=== PATIENT | female | born 1950 | race Caucasian/White ===

== ENCOUNTER 2016-08-01 22:29 | Observation (INO) | payer BC, MEDICARE ==
[~2016-08-01] VITALS: Ht 170.2 cm; Wt 78.0 kg
[2016-08-01 22:31] VITALS: BP 196/90; PULSE 91; RESP 16; TEMP 98.4; O2SAT 98
[2016-08-01 23:00] VITALS: BP 149/74; PULSE 85; RESP 16; O2SAT 98
[2016-08-01 23:20] VITALS: RESP 18; O2SAT 98
[2016-08-02] MEDS ORDERED: MORPHINE SULFATE 4 MG/ML INJ IV PUSH ONE (00:30)
[2016-08-02] MEDS ORDERED: ONDANSETRON HCL 4 MG/2 ML VIAL IV PUSH ONE (00:30)
--- NOTE | 2016-08-02 00:36 | RADRPT ---
EXAM DATE/TIME: 08/02/2016 00:21 [facility] COMPARISON: No previous studies available for comparison. INDICATIONS : Chest pain. MEDICAL HISTORY : None. SURGICAL HISTORY : None. ENCOUNTER: Initial ACUITY: 1 day PAIN SCORE: 0/10 LOCATION: Bilateral chest FINDINGS: A single view of the chest demonstrates the lungs to be symmetrically aerated without evidence of mas s, infiltrate or effusion. The cardiomediastinal contours are unremarkable. Osseous structures are intact. CONCLUSION: No acute disease. Keny Saavedra Jr., MD on August 02, 2016 at 0:34 Board Certified Radiologist. This report was verified electronically.
[2016-08-02 00:38] LABS: BASOPHIL % 0.4 % (0.0-2.0); EOSINOPHIL # 0.2 TH/MM3 (0-0.4); EOSINOPHIL % 2.7 % (0.0-4.0); HEMATOCRIT 35.6 % (35.0-46.0); HEMO FLAGS DIFF FINAL; LYMPH % 23.9 % (9.0-44.0); LYMPHOCYTE # 2.2 TH/MM3 (1.0-4.8); MEAN CELL VOLUME 88.4 FL (80.0-100.0); MEAN CORPUSCULAR HEMOGLOBIN 30.6 PG (27.0-34.0); MEAN CORPUSCULAR HGB CONC 34.7 % (32.0-36.0); MONO % 7.6 % (0.0-8.0); NEUT % 65.4 % (16.0-70.0); PLATELET COUNT 222 TH/MM3 (150-450); RED BLOOD COUNT 4.03 MIL/MM3 (4.00-5.30); RED CELL DISTRIBUTION WIDTH 12.8 % (11.6-17.2); WHITE BLOOD COUNT 9.2 TH/MM3 (4.0-11.0)
[2016-08-02 00:55] LABS: APTT (PATIENT) 29.4 SEC (24.3-30.1); INTERNATIONAL NORMALIZED RATIO 0.9 RATIO; PROTHROMBIN TIME - PATIENT 10.4 SEC (9.8-11.6)
--- NOTE | 2016-08-02 00:56 | PD ---
HPI Chief Complaint: Chest Pain Time Seen by Provider: 23:26 Travel History International Travel<30 days: No Contact w/Intl Traveler<30days: No Traveled to known affect area: No History of Present Illness HPI 66-year-old female complains of chest pain. Patient states that she has intermittent chest pain for the past 2 months. Patient states the pain is a combination of sharp pain and aching pain started on the right-sided chest with radiation to the mid substernal area and to the back. Patient states that she has intermittent coughing congestion with productive sputum also. Patient states that she has intermittent nausea but no vomiting or diarrhea. Patient states the pain is worse with movement and deep inspiration and exertion. Patient denies any diaphoresis. Patient denies any history of CAD. Patient was seen by personal physician for chest pain and scheduled for stress test next week. Patient came to [facility] for the past few days. Patient has history hypertension, hyperlipidemia. Patient is a nonsmoker. Patient has family history of heart disease. Patient denies history of diabetes. On a scale of 1- 10 the pain is a 6.. PFSH Social History Tobacco Use: No Allergies-Medications (Allergen,Severity, Reaction): Coded Allergies: Erythromycin (Verified Allergy, Intermediate, 08/01/16) Macrodantin (Verified Allergy, Intermediate, 08/01/16) Reported Meds & Prescriptions Reported Meds & Active Scripts Active Reported Hydrochlorothiazide 25 Mg Tab 25 Mg PO DAILY Testopel Implant (Testosterone) 75 mg Impl Unknown Dose IMPLANT Q90D [Vitamin A&D&K] 1 Cap PO HS Atorvastatin (Atorvastatin Calcium) 10 Mg Tab 10 Mg PO HS Metformin (Metformin HCl) 500 Mg Tab 500 Mg PO DAILY AFTER DINNER With a meal Toprol XL (Metoprolol Succinate) 25 Mg Tab 25 Mg PO DAILY Diltiazem CD 24 HR 180 Mg Caper 180 Mg PO DAILY Omeprazole 40 Mg Cap 40 Mg PO DAILY Celebrex (Celecoxib) 200 Mg Cap 200 Mg PO DAILY Gabapentin 300 Mg Cap 300 Mg PO BID Thyroid 65 Mg Tab 65 Mg PO DAILY Elmiron (Pentosan Polysulfate Sodium) 100 Mg Cap 100 Mg PO TID All Day Allergy (Cetirizine HCl) 10 Mg Tab 10 Mg PO DAILY Zofran (Ondansetron HCl) 4 Mg Tab 4 Mg PO Q6HR PRN Review of Systems General / Constitutional: No: Fever Eyes: No: Visual changes HENT: No: Headaches Cardiovascular: Positive: Chest Pain or Discomfort Respiratory: Positive: Cough, No: Shortness of Breath Gastrointestinal: Positive: Nausea, No: Abdominal Pain Genitourinary: No: Dysuria Musculoskeletal: No: Pain Skin: No Rash Neurologic: No: Weakness Psychiatric: No: Depression Endocrine: No: Polydipsia Hematologic/Lymphatic: No: Easy Bruising Physical Exam Narrative GENERAL: Well-nourished, well-developed patient. SKIN: Focused skin assessment warm/dry. HEAD: Normocephalic. EYES: No scleral icterus. No injection or drainage. NECK: Supple, trachea midline. No JVD or lymphadenopathy. CARDIOVASCULAR: Regular rate and rhythm without murmurs, gallops, or rubs. RESPIRATORY: Breath sounds equal bilaterally. No accessory muscle use. GASTROINTESTINAL: Abdomen soft, non-tender, nondistended. MUSCULOSKELETAL: No cyanosis, or edema. BACK: Nontender without obvious deformity. No CVA tenderness. Neurologic exam normal. Data Data Last Documented VS Vital Signs Date Time Temp Pulse Resp B/P Pulse Ox O2 Delivery O2 Flow Rate FiO2 08/01/16 23:20 18 98 Room Air 08/01/16 23:20 72 08/01/16 23:00 149/74 08/01/16 22:31 98.4 Orders Complete Blood Count With Diff (08/01/16 23:53) Comprehensive Metabolic Panel (08/01/16 23:53) Creatine Kinase (Cpk) (08/01/16 23:53) Troponin I (08/01/16 23:53) B-Type Natriuretic Peptide (08/01/16 23:53) Prothrombin Time / Inr (Pt) (08/01/16 23:53) Act Partial Throm Time (Ptt) (08/01/16 23:53) Urinalysis - C+S If Indicated (08/01/16 23:53) D-Dimer (08/01/16 23:53) Chest, Single Ap (08/01/16 23:53) Iv Access Insert/Monitor (08/01/16 23:53) Ecg Monitoring (08/01/16 23:53) Oximetry (08/01/16 23:53) Ct Pulmonary Angiogram (08/01/16 23:53) Morphine Inj (Morphine Inj) (08/02/16 00:30) Ondansetron Inj (Zofran Inj) (08/02/16 00:30) Iohexol 350 Inj (Omnipaque 350 Inj) (08/02/16 01:44) Activity Bed Rest With Brp (08/02/16 02:21) Vital Signs (Adult) Q4H (08/02/16 02:21) Cardiac Rhythm .As Directed (08/02/16 02:) Notify Dr: Other .PRN (08/02/16 02:21) Notify DrPanchito Parameters (08/02/16 02:21) Resp Oxygen Nasal Cannula (08/02/16 ) Ckmb (Isoenzyme) Profile (08/02/16 02:30) Ckmb (Isoenzyme) Profile (08/02/16 05:30) Troponin I (08/02/16 02:30) Troponin I (08/02/16 05:30) Electrocardiogram (08/02/16 02:30) Electrocardiogram (08/02/16 05:30) ^ Obtain (08/02/16 02:21) Sodium Chloride 0.9% Flush (Ns Flush) (08/02/16 02:30) Sodium Chloride 0.9% Flush (Ns Flush) (08/02/16 09:00) Acetaminophen (Tylenol) (08/02/16 02:30) Ondansetron Inj (Zofran Inj) (08/02/16 02:30) Sandwich Peddler / Telemetry MARIAN.Q8H (08/02/16 02:21) Admit Order (Ed Use Only) (08/02/16 02:23) Potassium Chloride (Kcl) (08/02/16 02:30) Labs Laboratory Tests Test 08/01/16 23:20 White Blood Count 9.2 TH/MM3 Red Blood Count 4.03 MIL/MM3 Hemoglobin 12.3 GM/DL Hematocrit 35.6 % Mean Corpuscular Volume 88.4 FL Mean Corpuscular Hemoglobin 30.6 PG Mean Corpuscular Hemoglobin 34.7 % Concent Red Cell Distribution Width 12.8 % Platelet Count 222 TH/MM3 Mean Platelet Volume 9.0 FL Neutrophils (%) (Auto) 65.4 % Lymphocytes (%) (Auto) 23.9 % Monocytes (%) (Auto) 7.6 % Eosinophils (%) (Auto) 2.7 % Basophils (%) (Auto) 0.4 % Neutrophils # (Auto) 6.0 TH/MM3 Lymphocytes # (Auto) 2.2 TH/MM3 Monocytes # (Auto) 0.7 TH/MM3 Eosinophils # (Auto) 0.2 TH/MM3 Basophils # (Auto) 0.0 TH/MM3 CBC Comment DIFF FINAL Differential Comment Prothrombin Time 10.4 SEC Prothromb Time International 0.9 RATIO Ratio Activated Partial 29.4 SEC Thromboplast Time D-Dimer Quantitative (PE/DVT) 0.39 MG/L FEU Sodium Level 141 MEQ/L Potassium Level 3.2 MEQ/L Chloride Level 103 MEQ/L Carbon Dioxide Level 25.2 MEQ/L Anion Gap 13 MEQ/L Blood Urea Nitrogen 22 MG/DL Creatinine 1.32 MG/DL Estimat Glomerular Filtration 40 ML/MIN Rate Random Glucose 187 MG/DL Calcium Level 8.5 MG/DL Total Bilirubin 0.8 MG/DL Aspartate Amino Transf 27 U/L (AST/SGOT) Alanine Aminotransferase 24 U/L (ALT/SGPT) Alkaline Phosphatase 131 U/L Total Creatine Kinase 84 U/L Troponin I LESS THAN 0.02 NG/ML B-Type Natriuretic Peptide 38 PG/ML Total Protein 7.0 GM/DL Albumin 3.3 GM/DL MDM Medical Decision Making Medical Screen Exam Complete: Yes Emergency Medical Condition: Yes Interpretation(s) 12:55 AM. EKG shows sinus rhythm nonspecific ST-T wave change. 2:16 AM. Last Impressions Chest X-Ray 08/01/166 Signed Impressions: Service Date/Time: Tuesday, August 02, 2016 00:21 - CONCLUSION: No acute disease. Keny Saavedra Jr., MD CT Angiography 08/01/16 [id number] Signed Impressions: Service Date/Time: Tuesday, August 02, 2016 01:26 - CONCLUSION: 1. No pulmonary emboli. 2. No acute intrathoracic process. 3. Prior granulomatous disease. Keny Saavedra Jr., MD 2:18 AM. CBC within normal limit. Potassium 3.2. BUN 22. Creatinine 1.32. Cardiac enzymes are normal. Differential Diagnosis Differential diagnosis including musculoskeletal, bronchitis, pneumonia, angina , ID, PE, pneumothorax. Narrative Course 66-year-old female with chest pain. KCl 20 mEq by mouth given. Patient will be admitted to the chest pain center. Diagnosis Primary Impression: Chest pain Qualified Code: R07.9 - Chest pain, unspecified type Admitting Information Admitting Physician Requests: Observation Jacob Rodarte MD August 02, 2016 00:56
[2016-08-02 00:59] LABS: ANION GAP 13 MEQ/L (5-15); AST (GOT) 27 U/L (15-37); BICARBONATE 25.2 MEQ/L (21.0-32.0); BLOOD UREA NITROGEN 22 MG/DL (7-18); CHLORIDE 103 MEQ/L (98-107); GLOMERULAR FILTRATION RATE 40 ML/MIN (>89); POTASSIUM 3.2 MEQ/L (3.5-5.1); SODIUM (NA) 141 MEQ/L (136-145)
[2016-08-02 01:04] LABS: ALKALINE PHOSPHATASE 131 U/L (45-117); ALT (GPT) 24 U/L (10-53); TOTAL BILIRUBIN ADULT 0.8 MG/DL (0.2-1.0)
[2016-08-02 01:33] LABS: CREATINE KINASE 84 U/L (26-192)
[2016-08-02] MEDS ORDERED: IOHEXOL 350 MG/ML 10 ML VIAL (for RAD DIAG) IV ONE (01:44)
--- NOTE | 2016-08-02 01:50 | RADRPT ---
EXAM DATE/TIME: 08/02/2016 01:26 [facility] COMPARISON: No previous studies available for comparison. INDICATIONS : Chest pain and nausea IV CONTRAST: 70 cc Omnipaque 350 (iohexol) IV RADIATION DOSE: 23.38 CTDIvol (mGy) MEDICAL HISTORY : None SURGICAL HISTORY : None. ENCOUNTER: Initial ACUITY: 1 day PAIN SCALE: 10/10 LOCATION: chest TECHNIQUE: Volumetric scanning of the chest was performed using a pulmonary embolism protocol MIP images were re constructed. Using automated exposure control and adjustment of the mA and/or kV according to patien t size, radiation dose was kept as low as reasonably achievable to obtain optimal diagnostic quality images. FINDINGS: PULMONARY ARTERIES: No filling defects are seen in the pulmonary arteries through the segmental level. LUNGS: Scattered calcified granulomas bilaterally. No worrisome nodules. No acute infiltrates. PLEURAE: There is no pleural thickening or pleural effusion. MEDIASTINUM: Small homogeneously calcified lymph nodes are seen involving the carolyn and middle mediastinum. No angelic opathy. Heart is at the upper limits of normal in terms of size. No pericardial effusion. MUSCULOSKELETAL: Within normal limits for patient age. MISCELLANEOUS: The visualized upper abdominal organs demonstrate no acute abnormality. CONCLUSION: 1. No pulmonary emboli. 2. No acute intrathoracic process. 3. Prior granulomatous disease. Keny Saavedra Jr., MD on August 02, 2016 at 1:44 Board Certified Radiologist. This report was verified electronically.
[2016-08-02] MEDS ORDERED: ONDANSETRON HCL 4 MG/2 ML VIAL IV PRN (02:30)
[2016-08-02] MEDS ORDERED: ACETAMINOPHEN 500 MG CPLT PO PRN (02:30)
[2016-08-02] MEDS ORDERED: SODIUM CHLORIDE 0.9% FLUSH 10 ML FLUSH IV FLUSH PRN (02:30)
[2016-08-02] MEDS ORDERED: POTASSIUM CHLORIDE 20 MEQ CONTROLLED RELEASE TAB PO ONE (02:30)
[2016-08-02 03:00] VITALS: BP 136/73; PULSE 79; RESP 16; O2SAT 99
[2016-08-02 04:21] VITALS: O2SAT 98
[2016-08-02 05:10] LABS: CREATINE KINASE 63 U/L (26-192)
[2016-08-02 06:52] LABS: CREATINE KINASE 74 U/L (26-192)
[2016-08-02 07:18] VITALS: BP 136/60; PULSE 73; RESP 14; TEMP 98; O2SAT 97
[2016-08-02] MEDS ORDERED: SODIUM CHLORIDE 0.9% FLUSH 10 ML FLUSH IV FLUSH SCH (09:00)
--- NOTE | 2016-08-02 10:05 | HHI.HP ---
HPI Primary Care Physician No Primary Care Physician Chief Complaint Chest pain History of Present Illness This is a 66-year-old female that presents to ED to evaluate chest discomfort. She states her grandson also came into the ER yesterday and was admitted for fever and other illnesses. She states that for the last few weeks she's had constant chest discomfort that waxes and wanes in intensity. Worse a 10 out of 10. Currently 3-4 out of 10. Certain movements seem to worsen symptoms. She little nauseous. No shortness breath or diaphoresis. She states that she saw her primary care physician in [place] for this and was being scheduled for a stress test next week. Nice history of coronary artery disease. She states she 's had a stress test in the past and is 5 or 6 years ago and that was okay. She has history of hypertension, hyperlipidemia and GERD but cannot recall the medications that she takes. Denies inspirational chest discomfort. Denies swelling in her legs. Denies calf pain. Review of Systems General: Patient denies fevers, chills recent, and recent travel HEENT: Patient denies headache, sore throat, difficulty swallowing. Cardiovascular: Has the chest discomfort as mentioned above. Denies sensation of heart beating rapidly or irregularly. No syncope. Denies diaphoresis. Respiratory: Denies shortness of breath or inspirational chest discomfort. Denies coughing wheezing or hemoptysis. GI: Patient felt a little nauseous last night. Patient denies vomiting, diarrhea, abdominal pain, bloody stools. Musculoskeletal: Patient denies joint pain or edema. Denies calf pain or edema. Neurovascular: Patient denies numbness, tingling, weakness in extremities. Denies headache. Endocrine: Denies polyuria and polydipsia. Hematologic: Denies easy bruising. Skin: Denies rash or itching. Past Family Social History Allergies: Coded Allergies: Erythromycin (Verified Allergy, Intermediate, 08/01/16) Macrodantin (Verified Allergy, Intermediate, 08/01/16) Past Medical History Hypertension, hyperlipidemia, GERD, Boston's esophagus. Denies diabetes and known CAD. Past Surgical History Right shoulder, bilateral knees, cervical spine, bilateral mastectomy secondary to breast cancer, cholecystectomy, tonsillectomy, hysterectomy. Active Ordered Medications Current Medications Medications (Trade) Dose Ordered Sig/Toby Route Start Time Stop Time Status Last Admin (NS Flush) 2 ml UNSCH PRN IV FLUSH 08/02/16 02:30 (NS Flush) 2 ml BID IV FLUSH 08/02/16 09:00 08/02/16 09:19 (Tylenol) 500 mg Q4H PRN PO 08/02/16 02:30 (Zofran Inj) 4 mg Q6H PRN IV 08/02/16 02:30 Family History She states that both her parents had stents in their 80s. Social History Patient quit smoking 45 years ago but prior that she smoked one half pack of cigarettes daily for 7 years. She denies alcohol or illicit drugs. She is a retired teacher. She is here on vacation from [place] with family. Physical Exam Vital Signs Vital Signs Date Time Temp Pulse Resp B/P Pulse Ox O2 Delivery O2 Flow Rate FiO2 08/02/16 07:18 98.0 73 14 136/60 97 08/02/16 04:21 98 08/02/16 03:00 79 16 136/73 99 Room Air 08/01/16 23:20 18 98 Room Air 08/01/16 23:20 72 18 98 Room Air 08/01/16 23:00 85 16 149/74 98 Room Air 08/01/16 22:31 98.4 91 16 196/90 98 Room Air Physical Exam GENERAL: This is a well-nourished, well-developed patient, in no apparent distress. Patient speaks in clear complete sentences. Patient is pleasant. HEENT: Head is atraumatic and normocephalic. Neck is supple without lymphadenopathy and trachea is midline. No JVD or carotid bruits. CARDIOVASCULAR: Regular rate and rhythm without murmurs, gallops, or rubs. RESPIRATORY: Clear to auscultation. Breath sounds equal bilaterally. No wheezes , rales, or rhonchi. Chest wall is tender in the discomfort is worsened with twisting of the torso and when she sits up from a supine position. No use of accessory muscles. GASTROINTESTINAL: Abdomen is nontender, nondistended. Abdomen soft. No obvious pulsatile mass or bruit. No CVA tenderness. Strong femoral pulses bilaterally. Normal bowel sounds in all quadrants. MUSCULOSKELETAL: Patient is moving upper and lower extremities freely. No calf tenderness or edema, no Homans sign. Strong pulses in upper and lower extremities. NEUROLOGICAL: Patient is alert and oriented. Cranial nerves 2-12 are grossly intact. No focal deficits and speech is clear. SKIN: No rash and turgor is normal. Laboratory Laboratory Tests Test 08/01/16 08/02/16 08/02/16 23:20 04:00 05:00 White Blood Count 9.2 Red Blood Count 4.03 Hemoglobin 12.3 Hematocrit 35.6 Mean Corpuscular Volume 88.4 Mean Corpuscular Hemoglobin 30.6 Mean Corpuscular Hemoglobin 34.7 Concent Red Cell Distribution Width 12.8 Platelet Count 222 Mean Platelet Volume 9.0 Neutrophils (%) (Auto) 65.4 Lymphocytes (%) (Auto) 23.9 Monocytes (%) (Auto) 7.6 Eosinophils (%) (Auto) 2.7 Basophils (%) (Auto) 0.4 Neutrophils # (Auto) 6.0 Lymphocytes # (Auto) 2.2 Monocytes # (Auto) 0.7 Eosinophils # (Auto) 0.2 Basophils # (Auto) 0.0 CBC Comment DIFF FINAL Differential Comment Prothrombin Time 10.4 Prothromb Time International 0.9 Ratio Activated Partial 29.4 Thromboplast Time D-Dimer Quantitative (PE/DVT) 0.39 Sodium Level 141 Potassium Level 3.2 Chloride Level 103 Carbon Dioxide Level 25.2 Anion Gap 13 Blood Urea Nitrogen 22 Creatinine 1.32 Estimat Glomerular Filtration 40 Rate Random Glucose 187 Calcium Level 8.5 Total Bilirubin 0.8 Aspartate Amino Transf 27 (AST/SGOT) Alanine Aminotransferase 24 (ALT/SGPT) Alkaline Phosphatase 131 Total Creatine Kinase 84 63 74 Troponin I LESS THAN 0.02 LESS THAN 0.02 LESS THAN 0.02 B-Type Natriuretic Peptide 38 Total Protein 7.0 Albumin 3.3 Result Diagram: 08/01/16231908/01/162319 Imaging Last 48 hours Impressions Chest X-Ray 08/01/162352 Signed Impressions: Service Date/Time: Tuesday, August 02, 2016 00:21 - CONCLUSION: No acute disease. Keny Saavedra Jr., MD CT Angiography 08/01/162352 Signed Impressions: Service Date/Time: Tuesday, August 02, 2016 01:26 - CONCLUSION: 1. No pulmonary emboli. 2. No acute intrathoracic process. 3. Prior granulomatous disease. Keny Saavedra Jr., MD Course EKGs have sinus rhythm without significant ST segment depressions or elevations. Assessment and Plan Assessment and Plan * Chest pain: Patient has had serial cardiac enzymes and EKGs for ruling out purposes. She'll be seen with Dr. Jeff Orona of cardiology in the chest pain center. She will undergo a Lexiscan and if nonischemic will be discharged home with instructions to follow-up with her primary care physician. * Hypertension: Continue home medications. * Hyperlipidemia: Continue home medications. * GERD: Continue home medications. Patient is stable this time. She is agreeable to this plan. Jeff Resendiz August 02, 2016 10:05
[2016-08-02] MEDS ORDERED: REGADENOSON INJ 0.4 MG/5 ML SYR ONE (10:23)
[2016-08-02 11:50] VITALS: BP 130/60; PULSE 81; RESP 18; TEMP 98.3; O2SAT 98
--- NOTE | 2016-08-02 12:04 | RADRPT ---
EXAM DATE/TIME: 08/02/2016 09:48 [facility] COMPARISON: No previous studies available for comparison. INDICATIONS : Right chest pain radiating to sunsternal chest and the back with nausea for 2 months. Angina. DOSE: 26.7 mCi Tc99m Myoview at stress. 8.7 mCi Tc99m Myoview at rest. 0.4 mg Lexiscan STRESS SYMPTOMS: Dyspnea, stomach pain and chest tightness. EJECTION FRACTION: > 70% MEDICAL HISTORY : Hypertension. SURGICAL HISTORY : Hysterectomy. Total knee replacement, left. Total knee replacement, right. ENCOUNTER: Initial ACUITY: 2 months PAIN SCALE: 6/10 LOCATION: Substernal chest TECHNIQUE: The patient underwent pharmacologic stress with infusion of prescribed dose. Continuous ECG tracing was monitored during stress. Gated SPECT imaging was performed after stress and conventional SPECT i maging was performed at rest. The examination was performed on a SPECT/CT scanner, both attenuation and non-corrected datasets were reviewed. FINDINGS: DISTRIBUTION: The maximum perfused segment at stress and equally distributed between the lateral and anterior dent . PERFUSION STUDY: The pattern of perfusion at stress is within normal limits with a small segment of approximately 10% redistribution in the upper central lateral wall which would not be considered statistically signific ant. Mild apical thinning. No reversibility to suggest ischemia GATED STUDY: There is intact wall motion and thickening without hypokinetic or dyskinetic segments. CONCLUSION: 1. No scintigraphic findings of infarct or ischemia. 2. Excellent wall motion throughout with estimated ejection fraction of greater than 70%. RISK CATEGORY: Low (<1% Annual Mortality Rate) Xavi Villegas MD on August 02, 2016 at 11:59 Board Certified Radiologist. This report was verified electronically.
[2016-08-02] MEDS ORDERED: ZOFR4TAB PO (12:39)
[2016-08-02] MEDS ORDERED: CETI10TA71 PO (12:39)
[2016-08-02] MEDS ORDERED: ELMI100C PO (13:19)
[2016-08-02] MEDS ORDERED: ATOR10TA15 PO (13:29)
[2016-08-02] MEDS ORDERED: OMEP40CA2 PO (13:29)
[2016-08-02] MEDS ORDERED: HYDR25TA5 PO (13:29)
[2016-08-02] MEDS ORDERED: DILT180C56 PO (13:29)
[2016-08-02] MEDS ORDERED: [UNRECOGNIZED DRUG - OTHER] IMPLANT (13:29)
[2016-08-02] MEDS ORDERED: THYR1TAB24 PO (13:29)
[2016-08-02] MEDS ORDERED: CELE200C PO (13:29)
[2016-08-02] MEDS ORDERED: [UNRECOGNIZED DRUG - OTHER] PO (13:29)
[2016-08-02] MEDS ORDERED: GABA300C5 PO (13:29)
[2016-08-02] MEDS ORDERED: METF500T PO (13:29)
[2016-08-02] MEDS ORDERED: TOPR25TA PO (13:29)
--- NOTE | 2016-08-02 13:42 | HHI.DCPOC ---
Discharge Care Plan Diagnosis: (1) Chest pain (2) Hypertension (3) Hyperlipidemia (4) DM (diabetes mellitus) (5) GERD (gastroesophageal reflux disease) Goals to Promote Your Health DON'T TAKE METFORMIN FOR TWO DAYS. * To prevent worsening of your condition and complications * To maintain your health at the optimal level Directions to Meet Your Goals Take your medications as prescribed Follow your dietary instruction Follow activity as directed Keep your appointments as scheduled Take your immunizations and boosters as scheduled If your symptoms worsen call your PCP, if no PCP go to Urgent Care Center or Emergency Room Smoking is Dangerous to Your Health. Avoid second hand smoke Call the 24-hour hour crisis hotline for domestic abuse at Jeff Resendiz August 02, 2016 13:42
--- NOTE | 2016-08-02 14:07 | EKG ---
Date Performed: 08/02/2016 Time Performed: 05:47:37 PTAGE: 66 years EKG: Sinus rhythm LOW QRS VOLTAGE IN EXTREMITY LEADS BORDERLINE ECG PREVIOUS TRACING : 08/02/2016 01.09 Since previous tracing, no significant change noted DOCTOR: Josh Orona Interpretating Date/Time 08/02/2016 14:05:37
--- NOTE | 2016-08-02 14:08 | EKG ---
Date Performed: 08/01/2016 Time Performed: 23:20:51 PTAGE: 66 years EKG: Sinus rhythm LOW QRS VOLTAGE IN EXTREMITY LEADS BORDERLINE ECG NO PREVIOUS TRACING DOCTOR: Josh Orona Interpretating Date/Time 08/02/2016 14:06:28
[2016-08-02] MEDS ORDERED: PENTOSAN POLYSULFATE SODIUM 100 MG PO SCH (18:00)
[2016-08-02] MEDS ORDERED: GABAPENTIN 300 MG CAP PO SCH (21:00)
[2016-08-02] MEDS ORDERED: ATORVASTATIN 10 MG TAB PO SCH (21:00)
[2016-08-03] MEDS ORDERED: PANTOPRAZOLE SOD 40 MG DELAYED RELEASE TAB PO SCH (09:00)
[2016-08-03] MEDS ORDERED: METOPROLOL SUCCINATE 25 MG EXTENDED RELEASE TAB PO SCH (09:00)
[2016-08-03] MEDS ORDERED: DILTIAZEM-CD 180 MG CAP ER PO SCH (09:00)
[2016-08-03] MEDS ORDERED: HYDROCHLOROTHIAZIDE 25 MG TAB PO SCH (09:00)
[2016-08-03] MEDS ORDERED: THYROID 60 MG TAB PO SCH (09:00)
--- NOTE | 2016-08-07 10:00 | TR ---
Date Performed: 08/02/2016 Time Performed: 10:41:33 DOCTOR: Josh Orona DRUG LIST: CLINICAL HISTORY: REASON FOR TEST: CHEST PAIN REASON FOR ENDING: OBSERVATION: CONCLUSION: Lexiscan stress test was performed under standard four minute protocol. Radionuclid e was injected one minute prior to ending the test. No electrocardiographic abormalities were present to suggest ischemia. Nuclear imaging and interpretation are pending. COMMENTS:
== END 2016-08-02 15:43 | disposition home or self-care (01) ==
LOC: NEPC 22:29 → NEDA 08-02 02:25 → NEPFCDU 08-02 06:37
PROVIDERS: ADMIT Internal Medicine Interventional Cardiology; ATTEND Internal Medicine Interventional Cardiology
DX: R07.89 Other chest pain (principal); I10 Essential (primary) hypertension; E78.5 Hyperlipidemia, unspecified; K21.9 Gastro-esophageal reflux disease without esophagitis; I25.10 Atherosclerotic heart disease of native coronary artery without angina pectoris; Z82.49 Family history of ischemic heart disease and other diseases of the circulatory system; Z90.13 Acquired absence of bilateral breasts and nipples; Z85.3 Personal history of malignant neoplasm of breast; Z88.1 Allergy status to other antibiotic agents; Z87.891 Personal history of nicotine dependence
CPT/HCPCS: 71010; 71275; 78452; 80053; 82550; 83880; 84484; 85025; 85379; 85610; 85730; 93005; 96374; 96375; 99285; A9502; G0378; J2270; J2405; J2785; Q9967; 93017